=== PATIENT | male | born 1980 | race Caucasian/White ===

== ENCOUNTER 2018-06-14 10:11 | Emergency (ER) | payer OTHER ==
[2018-06-14] MEDS ORDERED: DEXAMETHASONE 10 MG/ML VIAL PO STA (10:59)
--- NOTE | 2018-06-14 11:05 | ED Physician Documentation ---
PD HPI CHEST PAIN - Stated complaint Stated Complaint: CHEST PX/NAUSEA - Chief complaint Chief Complaint: Cardiac - History obtained from History obtained from: Patient, Family - History of Present Illness Timing - onset: How many days ago (4) Timing - onset during: Exertion Timing - duration: Days (4) Timing - details: Gradual onset, Still present Quality: Sharp, Pain Location: Substernal, Right chest Radiation: No: Jaw, Neck, Back, Abdominal, Left upper extremity, Right upper extremity Improved by: Rest Worsened by: Palpation, Position Associated symptoms: Nausea. No: Shortness of air, Diaphoresis, Vomiting, Feeling faint / dizzy, General Weakness, Palpitations, Cough Similar symptoms before: Has not had sx before Recently seen: Not recently seen - Additional information Additional information: 38-year-old male with history of hypertension has developed right sided substern al chest pain about 4 days ago. He states this started while he was cleaning the side of a pool with a long brush. He states he was doing this for about an hour and a half both on Saturday and and that the pain has persisted since that time. He has had some nausea associated with this and he became concerned today when he was at a restaurant and has decided to come in to be checked out. He has not had syncope or lightheadedness. He does have some anxiety which he states he is certain is the reason that he is here today. He feels relatively confident that this is related to the work he was doing on the pool in [place] earlier in the week. He does not have an exertional component to it now. Review of Systems Constitutional: denies: Fever Eyes: denies: Decreased vision Ears: denies: Ear pain Nose: denies: Congestion Throat: denies: Sore throat Cardiac: reports: Chest pain / pressure. denies: Palpitations, Pedal edema, Calf pain Respiratory: denies: Dyspnea, Cough GI: reports: Nausea. denies: Abdominal Pain, Vomiting, Constipation, Diarrhea : denies: Dysuria, Frequency Skin: denies: Rash Musculoskeletal: denies: Neck pain, Back pain, Extremity pain Neurologic: denies: Generalized weakness, Focal weakness, Numbness PD PAST MEDICAL HISTORY - Past Medical History Past Medical History: Yes Cardiovascular: Hypertension Psych: Anxiety - Past Surgical History Past Surgical History: No - Present Medications Home Medications: Ambulatory Orders Medication Instructions Recorded Confirmed No Known Home Medications 06/14/18 06/14/18 - Allergies Allergies/Adverse Reactions: Allergies Allergy/AdvReac Type Severity Reaction Status Date / Time No Known Drug Allergies Allergy Verified 06/14/18 10:18 - Social History Does the pt smoke?: No Smoking Status: Former smoker Does the pt drink ETOH?: Yes Does the pt have substance abuse?: No - Immunizations Immunizations are current?: Yes - POLST Patient has POLST: No PD ED PE NORMAL - Vitals Vital signs reviewed: Yes (hypertension) - General General: Alert and oriented X 3, No acute distress, Well developed/nourished - HEENT HEENT: Atraumatic, PERRL, EOMI, Ears normal - Neck Neck: Supple, no meningeal sign - Cardiac Cardiac: RRR, No murmur - Respiratory Respiratory: No respiratory distress, Clear bilaterally, Other (There is chest wall point tenderness to the right parasternal chest wall that is minimal. This is exacerbated by forearm extension against pressure. 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, No motor deficit, No sensory deficit, Normal speech Eye Opening: Spontaneous Motor: Obeys Commands Verbal: Oriented GCS Score: 15 - Psych Psych: Normal mood, Normal affect Results - Vitals Vitals: Vital Signs - 24 hr 06/14/18 06/14/18 10:14 10:46 Temperature 36 C L Heart Rate 67 72 Respiratory 18 14 Rate Blood Pressure 140/89 H 146/96 H O2 Saturation 99 99 Oxygen O2 Source Room air - EKG (time done) 1019 Rate: Rate (enter#) Rhythm: NSR Intervals: Wide QRS Compare to prior EKG: Old EKG unavailable Computer interpretation: Agree with computer - Labs Labs: Laboratory Tests 06/14/18 06/14/18 06/14/18 11:10 11:10 11:10 WBC 7.6 RBC 5.23 Hgb 16.6 Hct 47.3 MCV 90.4 MCH 31.8 H MCHC 35.1 RDW 12.2 Plt Count 202 MPV 9.7 Neut # (Auto) 4.3 Lymph # (Auto) 2.4 [place] # (Auto) 0.7 Eos # (Auto) 0.1 Baso # (Auto) 0.1 Absolute Nucleated RBC 0.01 Nucleated RBC % 0.1 Sodium 134 L Potassium 3.7 Chloride 100 L Carbon Dioxide 25 Anion Gap 9.0 BUN 12 Creatinine 1.0 Estimated GFR (MDRD) 84 L Glucose 94 Calcium 9.2 Total Bilirubin 1.1 H AST 57 H ALT 125 H Alkaline Phosphatase 60 Troponin I < 0.04 Total Protein 7.8 Albumin 4.5 Globulin 3.3 Albumin/Globulin Ratio 1.4 Lipase 40 - Rads (name of study) 2 veiw chest Radiology: Prelim report reviewed (Impression: Normal two-view chest radiography.), EMP read indepedently, See rad report PD MEDICAL DECISION MAKING - ED course Complexity details: reviewed results, re-evaluated patient, considered differential, d/w patient, d/w family ED course: 38-year-old male with a history of hypertension has developed chest pain in the right parasternal muscles and he does have a history consistent with overuse of these muscles and has pain with use of these muscles today. This pain reproduces the pain the patient is brought to the emergency department for. His electric cardiogram is unremarkable, his trop is negative and the CXR is without findings. He is diagnosed with a chest wall strain and given decadron here in the ED. The patient does have elevation of his liver enzymes and has previously been told he has fatty infiltrated liver. He is given instructions on nonalcoholic fatty liver disease. - Sepsis Event Vital Signs: Vital Signs - 24 hr 06/14/18 06/14/18 10:14 10:46 Temperature 36 C L Heart Rate 67 72 Respiratory 18 14 Rate Blood Pressure 140/89 H 146/96 H O2 Saturation 99 99 Oxygen O2 Source Room air Departure - Departure Disposition: 01 Home, Self Care Clinical Impression: Strain of chest wall Qualifiers: Encounter type: initial encounter Qualified Code(s): S29.011A - Strain of muscle and tendon of front wall of thorax, initial encounter Condition: Stable Instructions: ED Chest Pain Costochondritis, NAFLD Follow-Up: [facility] [Provider Group]
[2018-06-14 11:21] LABS: BASOPHILS # (AUTO) 0.1 10^3/uL (0.0-0.1); BASOPHILS % (AUTO) 1.1 %; EOSINOPHILS # (AUTO) 0.1 10^3/uL (0.0-0.7); EOSINOPHILS % (AUTO) 1.2 %; HGB - HEMOGLOBIN 16.6 g/dL (14.0-18.0); LYMPHOCYTES # (AUTO) 2.4 10^3/uL (1.5-3.5); LYMPHOCYTES % (AUTO) 31.8 %; MEAN CORPUSCULAR HEMOGLOBIN 31.8 pg (27.0-31.0); MEAN CORPUSCULAR HGB CONC 35.1 g/dL (32.0-36.0); MEAN CORPUSCULAR VOLUME 90.4 fL (80.0-94.0); MEAN PLATELET VOLUME 9.7 fL (7.4-11.4); MONOCYTES # (AUTO) 0.7 10^3/uL (0.0-1.0); MONOCYTES % (AUTO) 9.5 %; NEUTROPHILS # (AUTO) 4.3 10^3/uL (1.5-6.6); NEUTROPHILS % (AUTO) 56.4 %; PLT - PLATELET COUNT 202 10^3/uL (130-450); RED BLOOD COUNT 5.23 10^6/uL (4.70-6.10); RED CELL DISTRIBUTION WIDTH 12.2 % (12.0-15.0); WHITE BLOOD COUNT 7.6 x10^3/uL (4.8-10.8)
[2018-06-14 11:38] LABS: ALBUMIN 4.5 g/dL (3.2-5.5); ALBUMIN/GLOBULIN RATIO 1.4 (1.0-2.2); BILIRUBIN,TOTAL 1.1 mg/dL (0.2-1.0); CALCIUM 9.2 mg/dL (8.5-10.3); TOTAL PROTEIN 7.8 g/dL (6.7-8.2)
--- NOTE | 2018-06-14 11:44 | XRAY Report ---
Reason: chest pain Procedure Date: 06/14/2018 Accession Number: [id number] / [id number] Procedure: XR - Chest 2 View X-Ray CPT Code: 24049 FULL RESULT: EXAM: CHEST RADIOGRAPHY EXAM DATE: 06/14/2018 11:29 AM. CLINICAL HISTORY: Chest pain. COMPARISON: None. TECHNIQUE: 2 views. FINDINGS: Lungs/Pleura: No focal opacities evident. No pleural effusion. No pneumothorax. Normal volumes. Mediastinum: Heart and mediastinal contours are unremarkable. Other: None. IMPRESSION: Normal 2-view chest radiography. [facility]
[2018-06-14 11:56] VITALS: BP 134/91
== END 2018-06-14 12:06 | disposition home or self-care (01) ==
LOC: ED 10:11
DX: S29.011A Strain of muscle and tendon of front wall of thorax, initial encounter (principal); S21.109A Unspecified open wound of unspecified front wall of thorax without penetration into thoracic cavity, initial encounter; X50.3XXA Overexertion from repetitive movements, initial encounter; Y93.H9 Activity, other involving exterior property and land maintenance, building and construction; I10 Essential (primary) hypertension; F41.9 Anxiety disorder, unspecified; Z87.891 Personal history of nicotine dependence
CPT/HCPCS: 36415; 71046; 80053; 83690; 84484; 85025; 93005; 99283

== ENCOUNTER 2018-10-31 08:00 | Outpatient (CLI) | payer OTHER ==
[2018-10-31 13:28] LABS: BASOPHILS # (AUTO) 0.1 10^3/uL (0.0-0.1); BASOPHILS % (AUTO) 0.9 %; EOSINOPHILS # (AUTO) 0.1 10^3/uL (0.0-0.7); EOSINOPHILS % (AUTO) 1.8 %; LYMPHOCYTES # (AUTO) 2.4 10^3/uL (1.5-3.5); LYMPHOCYTES % (AUTO) 34.5 %; MEAN CORPUSCULAR HEMOGLOBIN 31.7 pg (27.0-31.0); MEAN CORPUSCULAR HGB CONC 34.5 g/dL (32.0-36.0); MEAN CORPUSCULAR VOLUME 91.7 fL (80.0-94.0); MEAN PLATELET VOLUME 10.2 fL (7.4-11.4); MONOCYTES # (AUTO) 0.6 10^3/uL (0.0-1.0); MONOCYTES % (AUTO) 8.4 %; NEUTROPHILS # (AUTO) 3.8 10^3/uL (1.5-6.6); NEUTROPHILS % (AUTO) 54.4 %; PLT - PLATELET COUNT 211 10^3/uL (130-450); RED BLOOD COUNT 5.38 10^6/uL (4.70-6.10); RED CELL DISTRIBUTION WIDTH 12.3 % (12.0-15.0)
[2018-10-31 13:58] LABS: ALBUMIN 4.3 g/dL (3.2-5.5); ALBUMIN/GLOBULIN RATIO 1.3 (1.0-2.2); ALKALINE PHOSPHATASE 61 IU/L (42-121); ALT ALANINE AMINOTRANSFERASE 88 IU/L (10-60); AST ASPARTATE AMINOTRANSFERASE 40 IU/L (10-42); BUN - BLOOD UREA NITROGEN 14 mg/dL (6-20); CALCIUM 9.2 mg/dL (8.5-10.3); CARBON DIOXIDE - CO2 23 mmol/L (21-32); CHLORIDE 100 mmol/L (101-111); CHOLESTEROL 239 mg/dL; CREATININE 0.9 mg/dL (0.6-1.2); GFR - MDRD 95 (>89); GLUCOSE 102 mg/dL (70-100); HDL CHOLESTEROL 30 mg/dL; LDL CHOLESTEROL,CALCULATED 142 mg/dL; LDL/HDL RATIO 4.7 (<3.6); SODIUM 132 mmol/L (135-145); TOTAL PROTEIN 7.6 g/dL (6.7-8.2); VLDL CHOLESTEROL 67 mg/dL
== END 2018-10-31 23:59 | disposition home or self-care (01) ==
LOC: LAB.WCP 08:00
PROVIDERS: ATTEND Family Medicine
DX: I10 Essential (primary) hypertension (principal)
CPT/HCPCS: 36415; 80053; 80061; 83721; 84443; 85025

== ENCOUNTER 2018-11-05 19:23 | Outpatient (CLI) | payer OTHER | END 2018-11-05 19:24 | disposition critical access hospital (66) | LOC: EMS 19:23 | PROVIDERS: ATTEND Surgery | DX: I46.9 Cardiac arrest, cause unspecified (principal) | CPT/HCPCS: A0425; A0433 ==

== ENCOUNTER 2018-11-05 19:38 | Emergency (ER) | payer OTHER ==
--- NOTE | 2018-11-05 19:58 | ED Physician Documentation ---
PD HPI CPR - Stated complaint Stated Complaint: CPR - History obtained from History obtained from: Family (), EMS - History of Present Illness Timing - onset: How many minutes ago (45), Today Timing - onset during: Light activity (His says that he had been having cough and congestion for the past several days to week or so. He had been to the providers office today and had gotten some prescription for antibiotics and medication. He had come home but had not yet taken the medications. He was sitting on the couch and then she heard him with gurgling sounds of breathing. She says he was unresponsive. He slouched on the couch and she was unable to move him from the couch due to his size. She called EMS and they arrived within several minutes. They found him to be pulseless and apneic with V. fib on the monitor. They did shock once and then his rhythm was asystole or agonal rhythm. ACLS was done on route with a endotracheal tube, an intraosseous infusion access, CPR in progress. He was given doses of epinephrine at appropriate intervals on the way.) Preceding symptoms: Dyspnea (for few days, associated with cough). No: Chest pain Contributing factors: No: CAD, ESRD Recently seen: Clinic (seen today for URI symptoms and Dx with URI/pneumonia.) Witnessed: Arrest witnessed Review of Systems Unable to obtain: Unresponsive, Intubated, Other (some info from ) Constitutional: reports: Fever Cardiac: denies: Chest pain / pressure Respiratory: reports: Dyspnea, Cough GI: denies: Vomiting PD PAST MEDICAL HISTORY - Past Medical History Cardiovascular: Hypertension Respiratory: None Neuro: None Endocrine/Autoimmune: None Psych: Anxiety - Past Surgical History Past Surgical History: No - Present Medications Home Medications: Ambulatory Orders Medication Instructions Recorded Confirmed No Known Home Medications 06/14/18 06/14/18 - Allergies Allergies/Adverse Reactions: Allergies Allergy/AdvReac Type Severity Reaction Status Date / Time No Known Drug Allergies Allergy Verified 06/14/18 10:18 - Living Situation Living Situation: reports: With spouse/s.o. Living Arrangement: reports: At home - Social History Does the pt smoke?: No Smoking Status: Former smoker Does the pt drink ETOH?: Yes Does the pt have substance abuse?: No - Family History Family history: reports: CAD - Immunizations Immunizations are current?: Yes - POLST Patient has POLST: No PD ED PE NORMAL - Vitals Vital signs reviewed: Yes - General General: Well developed/nourished, Other (He arrives to the ER with CPR in progress. Endotracheal tube is in place and lung sounds are symmetric. There is chest rise with bag valve respirations. His pupils are midpoint and nonreactive. There is no spontaneous respirations noted.) - HEENT HEENT: Atraumatic - Neck Neck: No JVD - Cardiac Cardiac: Other (No heart sounds heard on brief pause when transferred to bed. Bedside U/S did not show any cardiac activity. ) - Respiratory Respiratory: Other (symmetric lung sounds with BVM. ) - Abdomen Abdomen: Non distended - Derm Derm: No: Normal color (dusky to purple color generally) - Extremities Extremities: No edema Results - Vitals Vitals: Vital Signs - 24 hr 11/05/18 20:03 Heart Rate 0 L Oxygen O2 Source Room air - Labs Labs: Laboratory Tests 11/05/18 11/05/18 11/05/18 19:54 19:54 19:54 WBC 6.5 RBC 4.77 Hgb 15.0 Hct 46.7 MCV 97.9 H MCH 31.4 H MCHC 32.1 RDW 12.7 Plt Count 151 MPV 10.4 Neut # (Auto) Not Reportable Lymph # (Auto) Not Reportable [place] # (Auto) Not Reportable Eos # (Auto) Not Reportable Baso # (Auto) Not Reportable Absolute Nucleated RBC Not Reportable Total Counted 100 Band Neuts % (Manual) 3 Abnorm Lymph % (Manual) 0 Nucleated RBC % Not Reportable Neutrophils # (Manual) 1.5 Lymphocytes # (Manual) 4.7 H Monocytes # (Manual) 0.3 Eosinophils # (Manual) 0.0 Basophils # (Manual) 0.0 Nucleated RBCs 1 Differential Comment MANUAL DIFFERENTIAL Manual Slide Review Indicated WBC Morphology NORMAL APPEARANCE Platelet Estimate NORMAL (130-450,000) Platelet Morphology NORMAL APPEARANCE RBC Morph Micro Appear NORMAL APPEARANCE Sodium 136 Potassium 2.4 L* Chloride 98 L Carbon Dioxide 17 L Anion Gap 21.0 H BUN 12 Creatinine 1.2 Estimated GFR (MDRD) 68 L Glucose 211 H Calcium 7.2 L Total Bilirubin 1.0 AST 339 H ALT 531 H Alkaline Phosphatase 53 Troponin I < 0.04 Total Protein 5.1 L Albumin 2.7 L Globulin 2.4 Albumin/Globulin Ratio 1.1 Lipase 40 PD MEDICAL DECISION MAKING - ED course Complexity details: considered differential (He presents with cardiopulmonary arrest and asystole with cardiac standstill on bedside ultrasound. He did not by history sound like he would be dehydrated. Did a quick evaluation bedside with ultrasound showed no cardiac activity and no obvious effusion. There was not any free fluid in the abdomen. I could see apparent lung markings in both anterior chest santana so no obvious pneumothorax.), d/w family () ED course: CPR and ACLS interventions were continued here in the ER while trying to find correctable causes for his arrest. Given recent cough and head cold symptoms, I would consider a viral cardiomyopathy with arrhythmia. Primary [place] with dysrhythmia is possible as well. He was given repeat doses of epinephrine at appropriate intervals. I did give some bicarbonate IV and also given calcium IV with consideration of dehydration and potential hyperkalemia. The patient remained in asystole without any cardiac activity noted on ultrasound after given time for the medications to circulate. After several rounds of medications and then being 25 minutes in the ER combined with reportedly 30-45 minutes prehospital, I felt that that time the code could be called and resuscitation stopped. - Critical Care Time(min): 25 Time Includes: Direct patient care, Family consult for tx dec Data interpretation: Pulse ox Departure - Departure Disposition: 20 Condition: Critical Record reviewed to determine appropriate education?: No Discharge Date/Time: 11/05/18 21:53
[2018-11-05 21:14] LABS: BASOPHILS % (AUTO) 0.1 %; EOSINOPHILS % (AUTO) 0.5 %; LYMPHOCYTES % (AUTO) 71.9 %; MEAN CORPUSCULAR HEMOGLOBIN 31.4 pg (27.0-31.0); MEAN CORPUSCULAR HGB CONC 32.1 g/dL (32.0-36.0); MEAN CORPUSCULAR VOLUME 97.9 fL (80.0-94.0); MEAN PLATELET VOLUME 10.4 fL (7.4-11.4); MONOCYTES % (AUTO) 9.4 %; NEUTROPHILS % (AUTO) 18.1 %; PLT - PLATELET COUNT 151 10^3/uL (130-450); RED BLOOD COUNT 4.77 10^6/uL (4.70-6.10); RED CELL DISTRIBUTION WIDTH 12.7 % (12.0-15.0); WHITE BLOOD COUNT 6.5 x10^3/uL (4.8-10.8)
[2018-11-05 21:16] LABS: ABNORMAL LYMPHS % (MANUAL) 0 %
[2018-11-05] MEDS ORDERED: NALOXONE 0.4 MG/ML VIAL ONE (21:16)
[2018-11-05 21:32] LABS: BAND NEUTROPHILS % (MANUAL) 3 %; DIFFERENTIAL COMMENT MANUAL DIFFERENTIAL; LYMPHOCYTES # (MANUAL) 4.7 10^3/uL (1.5-3.5); LYMPHOCYTES % (MANUAL) 72 %; MONOCYTES # (MANUAL) 0.3 10^3/uL (0.0-1.0); NEUTROPHILS # (MANUAL) 1.5 10^3/uL (1.5-6.6); NEUTROPHILS % (MANUAL) 20 %; PLATELET ESTIMATE, MANUAL NORMAL (130-450,000) (NORMAL); PLATELET MORPHOLOGY NORMAL APPEARANCE (NORMAL); RBC MORPHOLOGY (MULTIPLE) NORMAL APPEARANCE (NORMAL)
[2018-11-05] MEDS ORDERED: CALCIUM CHLORIDE ABBOJECT 1000MG/10 ML SYRINGE IVP STA (21:35)
[2018-11-05] MEDS ORDERED: EPINEPHrine ABBOJECT 1 MG/10 ML SYRINGE IVP STA ×2 (21:35→21:36)
[2018-11-05] MEDS ORDERED: SODIUM BICARBONATE ABBOJECT 50 MEQ/50 ML SYRINGE IVP STA (21:35)
[2018-11-05] MEDS ORDERED: NALOXONE 0.4 MG/ML VIAL IVP STA (21:36)
[2018-11-05 21:47] LABS: ALBUMIN/GLOBULIN RATIO 1.1 (1.0-2.2); CALCIUM 7.2 mg/dL (8.5-10.3); CREATININE 1.2 mg/dL (0.6-1.2); TOTAL PROTEIN 5.1 g/dL (6.7-8.2)
[2018-11-05 21:49] LABS: ALBUMIN 2.7 g/dL (3.2-5.5)
== END 2018-11-05 19:55 | disposition expired ==
LOC: EDUNIT# → ED 19:38
DX: I46.9 Cardiac arrest, cause unspecified (principal); I10 Essential (primary) hypertension; Z82.49 Family history of ischemic heart disease and other diseases of the circulatory system
CPT/HCPCS: 36415; 80053; 83690; 84484; 85025; 92950; 99285